=== PATIENT | female | born 1950 | race Caucasian/White ===

== ENCOUNTER 2017-10-24 06:54 | Day surgery (SDC) | payer MEDICARE, SELFPAY ==
[2017-10-20 16:17] VITALS: BMI 23.5
[2017-10-24] VITALS (7 sets, daily range): BP systolic 163–183; BP diastolic 86–93; PULSE 51–58; RESP 18–20; TEMP 36.5–36.8; O2SAT 97–100
--- NOTE | 2017-10-24 10:32 | PC.NURSE ---
IV DC'D AND 2X2S AND COBAN APPLIED TO SITE
== END 2017-10-24 09:36 | disposition hospice, home (50) ==
LOC: OR 06:56
PROVIDERS: PCP Internal Medicine Adolescent Medicine; Visit Provider Ophthalmology
DX: H26.9 Unspecified cataract (principal)
CPT/HCPCS: 66984; V2632

== ENCOUNTER → 2018-01-05 06:22 | Outpatient (CLI) | payer MEDICARE, SELFPAY ==
--- NOTE | 2018-01-05 06:24 | NM_ITS ---
History and Indications: Coronary artery disease, hypertension, family history, chest pain, shortness of breath and fatigue Procedure: Patient received a 0.4 mg of Lexiscan, resting heart rate was 66 bpm, resting blood pressure 195/101, with Lexiscan maximum heart rate achieved was 103 bpm which is less than 85% of the maximum predicted heart rate and a blood pressure is 185/107. With Lexiscan patient denied any complained of chest pain. Electrocardiogram: Resting electrocardiogram showed sinus rhythm premature ventricular complex, with Lexiscan there is less than 1.[address] depression noted from the baseline EKG. The EKG portion of the Lexiscan Myoview is nondiagnostic. Cardiac stress and resting SPECT images: Cardiac stress and rest SPECT images were obtained using technetium 99 Myoview 10.4 mCi at rest and 32.1 mCi at stress gated SPECT further analysis of segmental wall motion and calculation of the ejection fraction also done. Cardiac stress and rest images show a mild fixed defect anteroseptally with normal contractility in the gated SPECT is likely secondary to soft tissue attenuation, no reversible ischemia seen. Computer derived ejection fraction is 65% with no obvious regional wall motion abnormality, right ventricle is normal size and contractility. Conclusion: 1. The EKG portion of the Lexiscan Myoview is nondiagnostic. 2. No obvious scintigraphic evidence of reversible ischemia seen, computer derived ejection fraction 65% with no obvious regional wall motion abnormality, right ventricle is normal size and contractility.
--- NOTE | 2018-01-05 06:24 | CA_ITS ---
PROCEDURE: 2-D M-mode and color Doppler study INDICATIONS FOR THE TEST: Chest painX COPD Heart Murmur Tobacco Smoking Palpitations Fatigue Syncope Edema HypertensionXDiabetes Mellitus Rheumatic Fever SOB DOEXObesity HyperlipidemiaX Family History HD Additional History CAD PATIENT INFORMATION HEIGHT: 67 WEIGHT:159 GENDER: Female B/P:144/83 2-D/M-MODE INTERPRETATION: 2-D MEASUREMENTS OBSERVED VALUES IN CMS Right Ventricular Dimension (RVDd) 2.2 Interventricular Septum (Thickness)(IVsd) 1.2 Left Ventricular Internal Dimensions(LVIDd) 5.1 Left Ventricular Posterior Wall (Thickness)(LVPWd) .9 Aortic Root 3.3 Aortic Cusp Separation 1.6 Left Atrial Dimensions (LAD) 3.4 2D 1. Left atrium is qualitatively mildly enlarged, left ventricle is normal size, there is mild concentric left ventricular hypertrophy, visually estimated ejection fraction 55% with no obvious regional wall motion abnormality. 2. The right atrium and the ventricular normal size and contractility. 3. The aortic valve is minimally thickened and fibrosed. 4. The mitral and tricuspid valve are grossly normal. 5. The pulmonic valve is poorly visualized. 6. No significant pericardial effusion noted. DOPPLER INTERROGATION: Doppler interrogation of the aortic, mitral and tricuspid valve reveals presence of mild mitral and tricuspid regurgitation, tricuspid regurgitant jet velocity is insufficient for calculation of the right ventricular systolic pressure. Grade 1 diastolic dysfunction seen without tissue Doppler evidence of raised left atrial pressure. CONCLUSION: 1. Mildly enlarged left atrium, normal left ventricular size, mild concentric left ventricular hypertrophy, visually estimated ejection fraction 55% with no obvious regional wall motion abnormality, grade 1 diastolic dysfunction seen without tissue Doppler evidence of raised left atrial pressure. 2. Mild mitral and tricuspid regurgitation 3. No significant pericardial effusion noted.
--- NOTE | 2018-01-05 07:14 | HMH.ITSHM ---
BISOPROLOL LEVOTHYROXINE CLOPIDOGREL ADVAIR
== END ==
PROVIDERS: PCP Internal Medicine Adolescent Medicine; Visit Provider Internal Medicine
DX: Z95.5 Presence of coronary angioplasty implant and graft; I25.118 Atherosclerotic heart disease of native coronary artery with other forms of angina pectoris
CPT/HCPCS: 78452; 93017; 93306; A9502; J2785

== ENCOUNTER 2018-09-18 14:51 | Outpatient (CLI) | payer MEDICARE, SELFPAY ==
[2018-09-18 15:02] VITALS: BMI 24.1
[2018-09-18 15:15] VITALS: BP 159/88; PULSE 66; RESP 18; TEMP 36.4; O2SAT 98
[2018-09-18 15:28] LABS: Basophils % 0.4 % (0.1-2.0); Eosinophils # 0.1 K/mm3 (0.0-0.4); Eosinophils % 1.1 % (0.1-12.0); Hematocrit 43.7 % (37.0-47.0); Hemoglobin 14.5 g/dL (12.2-16.2); Lymphocytes # 0.8 K/mm3 (0.7-4.5); Lymphocytes % 13.5 % (10-50); Mean Corpuscular HGB Conc 33.3 g/dL (31.8-35.4); Mean Corpuscular Hemoglobin 29.3 pg (27.0-31.2); Mean Platelet Volume 6.9 fl (7.4-10.4); Monocytes # 0.3 K/mm3 (0.1-1.0); Monocytes % 5.4 % (1.7-9.3); Neutrophils # 4.6 K/mm3 (1.8-7.8); Neutrophils % 79.6 % (37.0-80.0); Platelet Count 258 K/mm3 (142-424); Red Blood Count 4.96 M/mm3 (4.20-5.40); Red Cell Distribution Width 13.2 % (11.5-17.5); White Blood Count 5.8 K/mm3 (4.8-10.8)
[2018-09-18 15:37] LABS: Alanine Aminotransferase 35 U/L (12-78); Albumin Level 3.8 gm/dL (3.4-5.0); Alkaline Phosphatase 107 U/L (46-116); Anion Gap 17.7 mEq/L (5-15); Aspartate Amino Transferase 39 U/L (15-37); Bilirubin,Total 0.9 mg/dL (0.2-1.0); Blood Urea Nitrogen 14 mg/dL (7-18); Calcium 9.4 mg/dL (8.5-10.1); Carbon Dioxide 23 mmol/L (21.0-32.0); Chloride 104 mmol/L (98-107); Creatinine Clearance Estimated 59 mL/min (50-200); Creatinine,Serum 0.83 mg/dL (0.55-1.02); Estimated Glomerular Filt Rate 68 ml/min (>60); GFR (African American) 82 ML/MIN (>60); Globulin 3.7 gm/dl (1.3-3.2); Glucose 105 mg/dL (74-106); Potassium 3.7 mmoL/L (3.5-5.1); Sodium 141 mmol/L (136-145); Total Protein,Serum 7.5 gm/dL (6.4-8.2)
[2018-09-18 15:45] VITALS: BP 149/82; PULSE 69; RESP 18; O2SAT 97
[2018-09-18 16:20] VITALS: BP 158/87; PULSE 70; RESP 18; O2SAT 98
[2018-09-20 12:19] LABS: Hep A Ab, IgM Negative (Negative); Hepatitis B Core Antibody IgM Negative (Negative); Hepatitis B Surface Antigen Negative (Negative)
[2018-09-21 16:12] LABS: Hepatitis C Antibody <0.1 s/co ratio (0.0-0.9)
== END 2018-09-18 16:28 | disposition home or self-care (01) ==
LOC: INF 14:53
PROVIDERS: PCP Internal Medicine Adolescent Medicine; Visit Provider Internal Medicine Adolescent Medicine
DX: K52.9 Noninfective gastroenteritis and colitis, unspecified (principal); R16.0 Hepatomegaly, not elsewhere classified
CPT/HCPCS: 80053; 80074; 85025; 96360

== ENCOUNTER → 2019-01-07 15:25 | Outpatient (CLI) | payer MEDICARE, SELFPAY ==
--- NOTE | 2019-01-07 15:39 | XR_ITS ---
XR chest 2V HISTORY: COPD, chronic bronchitis ITS.REASON: COUGH,DYSPNEA,COPD ORDERING PHYSICIAN: Cleo Fleming PATIENT AGE: 68 years COMPARISON: 12/19/2016 FINDINGS: The cardiomediastinal silhouette and pulmonary vascularity are within normal limits. Patchy densities present in the lung bases on both sides consistent with pericardial fat pads which had a similar appearance on 08/23/2014.. COPD. Degenerative change thoracic spine IMPRESSION: COPD, no acute finding
[2019-01-07 16:04] LABS: Basophils % 0.6 % (0.1-2.0); Eosinophils # 0.2 K/mm3 (0.0-0.4); Eosinophils % 2.9 % (0.1-12.0); Hematocrit 42.6 % (37.0-47.0); Hemoglobin 14.7 g/dL (12.2-16.2); Lymphocytes # 1.7 K/mm3 (0.7-4.5); Mean Corpuscular HGB Conc 34.6 g/dL (31.8-35.4); Mean Corpuscular Hemoglobin 30.6 pg (27.0-31.2); Mean Corpuscular Volume 88.6 fl (81-99); Monocytes # 0.2 K/mm3 (0.1-1.0); Monocytes % 4.2 % (1.7-9.3); Neutrophils # 3.7 K/mm3 (1.8-7.8); Neutrophils % 63.3 % (37.0-80.0); Platelet Count 313 K/mm3 (142-424); Red Cell Distribution Width 13.3 % (11.5-17.5); White Blood Count 5.8 K/mm3 (4.8-10.8)
[2019-01-07 20:26] LABS: Alanine Aminotransferase 25 U/L (12-78); Albumin Level 4.4 gm/dL (3.4-5.0); Albumin/Globulin Ratio 1.4 (1.1-1.8); Alkaline Phosphatase 87 U/L (46-116); Aspartate Amino Transferase 19 U/L (15-37); Bilirubin,Total 0.6 mg/dL (0.2-1.0); Blood Urea Nitrogen 11 mg/dL (7-18); Calcium 9.6 mg/dL (8.5-10.1); Carbon Dioxide 27 mmol/L (21.0-32.0); Chloride 104 mmol/L (98-107); Chol/HDL Ratio 3.7 (1-3.5); Cholesterol 242 mg/dL (140-200); Creatinine,Serum 0.96 mg/dL (0.55-1.02); Estimated Glomerular Filt Rate 57 ml/min (>60); GFR (African American) 70 ML/MIN (>60); Globulin 3.1 gm/dl (1.3-3.2); Glucose 83 mg/dL (74-106); HDL Cholesterol 65 mg/dL (29-89); LDL Cholesterol 152 mg/dL (0-130); Sodium 142 mmol/L (136-145); Thyroid Stimulating Hormone 0.67 uIU/ml (0.358-3.740); Total Protein,Serum 7.5 gm/dL (6.4-8.2); Triglycerides 125 mg/dL (30-200); VLDL Cholesterol 25 mg/dL (0-40)
== END ==
PROVIDERS: PCP Internal Medicine Adolescent Medicine; Visit Provider Nurse Practitioner Family
DX: E78.2 Mixed hyperlipidemia (principal); I10 Essential (primary) hypertension; E03.9 Hypothyroidism, unspecified; R05 Cough; R06.09 Other forms of dyspnea; J44.9 Chronic obstructive pulmonary disease, unspecified
CPT/HCPCS: 36415; 71046; 80053; 80061; 84443; 85025

== ENCOUNTER → 2019-07-25 09:55 | Outpatient (CLI) | payer MEDICARE, SELFPAY ==
--- NOTE | 2019-07-25 10:01 | CT_ITS ---
PROCEDURE: CT WRIST RT WO CON CLINICAL HISTORY: evaulate wrist fracture, injury with pain, preoperative evaluation Evaluate wrist fracture COMPARISON: XR WRIST RT MIN 3V from 07/23/2019 TECHNIQUE: Axial images obtained with sagittal and coronal reformats. All CT scans at the facility use one or more dose reduction, viz: automated exposure control, ma/kV adjustment per patient size (including targeted exams where dose is matched to indication, i.e. head), or iterative reconstruction technique. FINDINGS: There is a comminuted fracture involving the distal aspect of the radius. Fracture has both a transverse and longitudinal component within a diverted T shape with a longitudinal component extending into the mid and dorsal aspect of the wrist medially. There is mild impaction along a transverse component of the fracture. The fracture is not significantly displaced. The ulna has an unremarkable appearance. No carpal bone fracture evident. There are osteoarthritic changes of the 1st metacarpal-carpal joint with bony exostosis of the trapezium. IMPRESSION: Comminuted nondisplaced distal radial fracture with intra-articular involvement with mild impaction Dictated by: Dandre Villegas MD 07/26/2019 17:07 Electronically signed by Dandre Villegas MD in [facility] 07/26/2019 17:07
--- NOTE | 2019-07-25 10:02 | XR_ITS ---
PROCEDURE: XR CHEST 2V CLINICAL HISTORY: HTN,CAD,PREOP COPD COMPARISON: CXR CHEST(2 VIEWS-NOT PORTABLE) from 08/23/2014 CXR1 CHEST-PORTABLE from 12/19/2016 CXR2V XR chest 2V from 01/07/2019 FINDINGS: Mild cardiomegaly without failure. Hyperinflation with attenuation of the peripheral pulmonary vessels consistent with COPD. Chronic changes in the lung bases with pericardial fat pads. No lobar consolidation or collapse. No acute bony abnormalities. IMPRESSION: COPD, no change with no acute finding Dictated by: Dandre Villegas MD 07/25/2019 15:24 Electronically signed by Dandre Villegas MD in [facility] 07/25/2019 15:24
[2019-07-25 11:41] LABS: Basophils # 0.1 K/mm3 (0-0.2); Basophils % 0.6 % (0.1-2.0); Eosinophils # 0.1 K/mm3 (0.0-0.4); Eosinophils % 1.7 % (0.1-12.0); Hematocrit 45.2 % (37.0-47.0); Hemoglobin 14.6 g/dL (12.2-16.2); Lymphocytes # 1.3 K/mm3 (0.7-4.5); Lymphocytes % 16.6 % (10-50); Mean Corpuscular HGB Conc 32.2 g/dL (31.8-35.4); Mean Corpuscular Hemoglobin 30.2 pg (27.0-31.2); Mean Corpuscular Volume 93.7 fl (81-99); Mean Platelet Volume 7.7 fl (7.4-10.4); Monocytes # 0.3 K/mm3 (0.1-1.0); Monocytes % 4.2 % (1.7-9.3); Neutrophils # 6.2 K/mm3 (1.8-7.8); Neutrophils % 76.9 % (37.0-80.0); Platelet Count 316 K/mm3 (142-424); Red Blood Count 4.83 M/mm3 (4.20-5.40); Red Cell Distribution Width 13.4 % (11.5-17.5)
[2019-07-25 16:16] LABS: Anion Gap 14.6 mEq/L (5-15); Blood Urea Nitrogen 10 mg/dL (7-18); Calcium 9.6 mg/dL (8.5-10.1); Carbon Dioxide 27 mmol/L (21.0-32.0); Chloride 103 mmol/L (98-107); Creatinine,Serum 0.81 mg/dL (0.55-1.02); Estimated Glomerular Filt Rate 70 ml/min (>60); GFR (African American) 85 ML/MIN (>60); Glucose 94 mg/dL (74-106); Potassium 3.6 mmoL/L (3.5-5.1); Sodium 141 mmol/L (136-145)
== END ==
PROVIDERS: PCP Internal Medicine Adolescent Medicine; Visit Provider Orthopaedic Surgery
DX: Z01.818 Encounter for other preprocedural examination; S52.501A Unspecified fracture of the lower end of right radius, initial encounter for closed fracture; M25.531 Pain in right wrist
CPT/HCPCS: 36415; 71046; 73200; 80048; 85025

== ENCOUNTER → 2019-08-07 09:35 | Outpatient (CLI) | payer MEDICARE, SELFPAY ==
--- NOTE | 2019-08-07 09:40 | XR_ITS ---
PROCEDURE: XR WRIST RT MIN 3V CLINICAL INDICATION: sp ORIF rt wrist; cast applied Follow-up ORIF COMPARISON: XR WRIST RT MIN 3V from 07/23/2019 FINDINGS: Studies obtained through a cast. Status post volar bone plate placement with good alignment of the distal radial fracture. Osteoarthritic changes are present at the 1st and 2nd metacarpal-carpal joint. IMPRESSION: Good alignment distal radial fracture status post ORIF Dictated by: Dandre Villegas MD 08/07/2019 10:30 Electronically signed by Dandre Villegas MD in [facility] 08/07/2019 10:30
== END ==
PROVIDERS: PCP Internal Medicine Adolescent Medicine; Visit Provider Orthopaedic Surgery
DX: Z48.89 Encounter for other specified surgical aftercare (principal); S52.501A Unspecified fracture of the lower end of right radius, initial encounter for closed fracture
CPT/HCPCS: 73110

== ENCOUNTER → 2019-08-21 14:49 | Outpatient (CLI) | payer MEDICARE, SELFPAY ==
--- NOTE | 2019-08-21 14:52 | XR_ITS ---
PROCEDURE: XR WRIST RT MIN 3V CLINICAL INDICATION: sp ORIF RT wrist; cast removal Follow-up ORIF COMPARISON: XR WRIST RT MIN 3V from 07/23/2019 XR WRIST RT MIN 3V from 08/07/2019 FINDINGS: Status post ORIF distal radial fracture with volar bone plate and multiple screws present similar to the previous exam. There is good alignment of the fracture fragments. Osteoarthritic changes are present at the 1st metacarpal carpal joint IMPRESSION: Good alignment status post ORIF distal radial fracture Dictated by: Dandre Villegas MD 08/21/2019 15:16 Electronically signed by Dandre Villegas MD in [facility] 08/21/2019 15:16
== END ==
PROVIDERS: PCP Internal Medicine Adolescent Medicine; Visit Provider Orthopaedic Surgery
DX: Z09 Encounter for follow-up examination after completed treatment for conditions other than malignant neoplasm (principal); S52.571D Other intraarticular fracture of lower end of right radius, subsequent encounter for closed fracture with routine healing
CPT/HCPCS: 73110

== ENCOUNTER 2019-08-21 15:35 | Outpatient (RCR) | payer MEDICARE, SELFPAY | END 2019-08-21 16:00 | disposition home or self-care (01) | LOC: OT 15:35 | PROVIDERS: Visit Provider Orthopaedic Surgery | DX: S52.501A Unspecified fracture of the lower end of right radius, initial encounter for closed fracture (principal) | CPT/HCPCS: 97763 ==

== ENCOUNTER → 2019-09-11 13:19 | Outpatient (CLI) | payer MEDICARE, SELFPAY ==
--- NOTE | 2019-09-11 13:23 | XR_ITS ---
PROCEDURE: XR WRIST RT MIN 3V CLINICAL INDICATION: sp ORIF rt wrist DOS 07/30/19 Follow-up fracture COMPARISON: XR WRIST RT MIN 3V from 07/23/2019 XR WRIST RT MIN 3V from 08/07/2019 XR WRIST RT MIN 3V from 08/21/2019 FINDINGS: Volar bone plate is present stabilizing distal radial fracture with good alignment. No obvious orthopedic complications. IMPRESSION: Good alignment status post distal radial fracture Dictated by: Dandre Villegas MD 09/11/2019 16:01 Electronically signed by Dandre Villegas MD in [facility] 09/11/2019 16:01
== END ==
PROVIDERS: PCP Internal Medicine Adolescent Medicine; Visit Provider Orthopaedic Surgery
DX: Z09 Encounter for follow-up examination after completed treatment for conditions other than malignant neoplasm (principal); S52.501D Unspecified fracture of the lower end of right radius, subsequent encounter for closed fracture with routine healing
CPT/HCPCS: 73110

== ENCOUNTER → 2019-10-23 14:12 | Outpatient (CLI) | payer MEDICARE, SELFPAY ==
--- NOTE | 2019-10-23 14:16 | XR_ITS ---
PROCEDURE: XR WRIST RT MIN 3V CLINICAL INDICATION: sp ORIF rt wrist, dos 07/30/19 COMPARISON: XR WRIST RT MIN 3V from 09/11/2019 FINDINGS: Postsurgical change associated with ORIF with metallic plate and reduction screws in the distal radius is again noted. There is anatomical positioning. There is diffuse demineralization. 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 IMPRESSION: Anatomical alignment of distal radius. No acute findings. Dictated by: Emeterio Nair 10/23/2019 15:22 Electronically signed by Emeterio Nair in [facility] 10/23/2019 15:22
== END ==
PROVIDERS: PCP Internal Medicine Adolescent Medicine; Visit Provider Orthopaedic Surgery
DX: Z09 Encounter for follow-up examination after completed treatment for conditions other than malignant neoplasm (principal); S52.571D Other intraarticular fracture of lower end of right radius, subsequent encounter for closed fracture with routine healing
CPT/HCPCS: 73110

== ENCOUNTER → 2020-06-16 08:59 | Outpatient (CLI) | payer MEDICARE, SELFPAY ==
[2020-06-16 09:27] LABS: Basophils # 0.1 K/mm3 (0-0.2); Basophils % 0.9 % (0.1-2.0); Eosinophils # 0.3 K/mm3 (0.0-0.4); Eosinophils % 4.4 % (0.1-12.0); Hematocrit 44.3 % (37.0-47.0); Hemoglobin 15.3 g/dL (12.2-16.2); Lymphocytes # 1.5 K/mm3 (0.7-4.5); Lymphocytes % 25.3 % (10-50); Mean Corpuscular HGB Conc 34.6 g/dL (31.8-35.4); Mean Corpuscular Hemoglobin 31.2 pg (27.0-31.2); Mean Corpuscular Volume 90.2 fl (81-99); Mean Platelet Volume 7.4 fl (7.4-10.4); Monocytes # 0.4 K/mm3 (0.1-1.0); Monocytes % 6.1 % (1.7-9.3); Neutrophils # 3.7 K/mm3 (1.8-7.8); Neutrophils % 63.2 % (37.0-80.0); Platelet Count 300 K/mm3 (142-424); Red Blood Count 4.91 M/mm3 (4.20-5.40); Red Cell Distribution Width 13.3 % (11.5-17.5); White Blood Count 5.9 K/mm3 (4.8-10.8)
[2020-06-16 10:19] LABS: Chloride 105 mmol/L (98-107); Potassium 4.4 mmoL/L (3.5-5.1); Sodium 140 mmol/L (136-145)
[2020-06-16 10:21] LABS: Blood Urea Nitrogen 9 mg/dl (7-17); Estimated Glomerular Filt Rate 71 ml/min (>60); GFR (African American) 86 ML/MIN (>60)
[2020-06-16 10:22] LABS: Alanine Aminotransferase 21 U/L (12-78); Albumin Level 4.2 g/dl (3.5-5.0); Albumin/Globulin Ratio 1.4 (1.1-1.8); Alkaline Phosphatase 87 U/L (38-126); Anion Gap 12.4 mEq/L (5-15); Aspartate Amino Transferase 30 U/L (14-36); Calcium 9.9 mg/dl (8.4-10.2); Carbon Dioxide 27 mmol/L (22.0-30.0); Chol/HDL Ratio 3.2 (1-3.5); Cholesterol 290 mg/dl (140-200); Glucose 106 mg/dl (74-100); HDL Cholesterol 90 mg/dl (40-60); Total Protein,Serum 7.2 g/dl (6.3-8.2); Triglycerides 107 mg/dl (30-150); VLDL Cholesterol 21 mg/dL (0-40)
[2020-06-16 10:33] LABS: Direct LDL Cholesterol 157.19 mg/dL (100-129)
[2020-06-16 10:52] LABS: Thyroid Stimulating Hormone 5.77 uIU/mL (0.465-4.68)
== END ==
PROVIDERS: Visit Provider Nurse Practitioner Family
DX: I10 Essential (primary) hypertension (principal); E03.9 Hypothyroidism, unspecified; R35.0 Frequency of micturition
CPT/HCPCS: 36415; 80053; 80061; 84443; 85025

== ENCOUNTER → 2020-10-14 15:01 | Outpatient (CLI) | payer MEDICARE, SELFPAY ==
--- NOTE | 2020-10-14 15:10 | XR_ITS ---
PROCEDURE: XR CHEST PORTABLE CLINICAL HISTORY: COVID EXPOSURE Shortness of air COMPARISON: CR CXR1 CHEST-PORTABLE from 12/19/2016 CR CXR2V XR chest 2V from 01/07/2019 CR XR CHEST 2V from 07/25/2019 FINDINGS: Mild cardiomegaly without failure. There is minimal blunting of the right CP angle. Patchy density is present in the left lung base probably related to pericardial fat pad. Upper lobes are clear. No acute bony abnormalities. IMPRESSION: Chronic changes with minimal blunting of the right CP angle. Dictated by: Dandre Villegas MD 10/14/2020 15:57 Dandre Villegas MD in [facility] 10/14/2020 15:57
[2020-10-14 19:03] LABS: Basophils % 0.7 % (0.1-2.0); Eosinophils % 0.5 % (0.1-12.0); Hematocrit 44.4 % (37.0-47.0); Hemoglobin 15.2 g/dL (12.2-16.2); Lymphocytes # 1.1 K/mm3 (0.7-4.5); Lymphocytes % 20.3 % (10-50); Mean Corpuscular HGB Conc 34.1 g/dL (31.8-35.4); Mean Corpuscular Volume 87.9 fl (81-99); Monocytes # 0.4 K/mm3 (0.1-1.0); Monocytes % 6.3 % (1.7-9.3); Neutrophils % 72.3 % (37.0-80.0); Platelet Count 224 K/mm3 (142-424); Red Blood Count 5.06 M/mm3 (4.20-5.40); Red Cell Distribution Width 13.3 % (11.5-17.5); White Blood Count 5.5 K/mm3 (4.8-10.8)
[2020-10-14 19:14] LABS: Alanine Aminotransferase 15 U/L (12-78); Albumin Level 4.1 g/dl (3.5-5.0); Albumin/Globulin Ratio 1.3 (1.1-1.8); Alkaline Phosphatase 89 U/L (38-126); Anion Gap 13.2 mEq/L (5-15); Aspartate Amino Transferase 29 U/L (14-36); Bilirubin,Total 0.4 mg/dl (0.2-1.3); Blood Urea Nitrogen 12 mg/dl (7-17); Calcium 9.7 mg/dl (8.4-10.2); Carbon Dioxide 24 mmol/L (22.0-30.0); Chloride 103 mmol/L (98-107); Estimated Glomerular Filt Rate 82 ml/min (>60); GFR (African American) 100 ML/MIN (>60); Globulin 3.1 g/dL (1.3-3.2); Glucose 105 mg/dl (74-100); Potassium 3.2 mmoL/L (3.5-5.1); Sodium 137 mmol/L (136-145); Total Protein,Serum 7.2 g/dl (6.3-8.2)
[2020-10-14 19:20] LABS: Coronavirus 19 IgG Antibody Negative (Negative); Coronavirus 19 IgM Antibody Negative (Negative)
== END ==
PROVIDERS: PCP Internal Medicine Adolescent Medicine; Visit Provider Internal Medicine Adolescent Medicine
DX: Z11.52 Encounter for screening for COVID-19 (principal); R50.9 Fever, unspecified
CPT/HCPCS: 36415; 71045; 80053; 85025; 86328

== ENCOUNTER 2020-10-18 19:25 | Emergency (ER) | payer MEDICARE, SELFPAY ==
[2020-10-18 19:36] VITALS: BP 180/117; PULSE 63; RESP 16; TEMP 36.7; O2SAT 96; BMI 26.6
--- NOTE | 2020-10-18 19:41 | XR_ITS ---
PROCEDURE: XR CHEST 2V Referring Doctor: Rony Tenorio Patient Age:69Y CLINICAL HISTORY: weakness,covid contact and positive Abdominal pain. Fatigue nausea vomiting general malaise COMPARISON: CR CXR2V XR chest 2V from 01/07/2019 CR XR CHEST 2V from 07/25/2019 CR XR CHEST PORTABLE from 10/14/2020 FINDINGS: PA and lateral chest performed. Lungs mildly hyperexpanded suggesting underlying COPD.. 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 Suspect the subtle areas likely the within density more likely within the lungs rather than related to rib density. Also at the right lung there is some wispy density just above the right hemidiaphragm. Some of this reflects chronic scarring and some atelectasis is seen on 2019 but difficult to exclude minimal wispy infiltrate here at the right lung base Left chest.. The density at the left lung base just above the diaphragm most likely reflects chronic changes and anterior fat pad. Similar appearance healing to this relates to. Question areas of upper normal density at the left anterior 3rd rib and and towards the anterior 5th rib laterally The heart is normal upper normal in size. Antoinette and mediastinal structures satisfactory. Pulmonary markings in vascularity a slightly more evident but I believe this is merely due to technique without significant vascular engorgement or congestion. No pleural effusion;. No pneumothorax. Stable degenerative changes T-spine manifest by anterior marginal osteophytes IMPRESSION: Mild chronic changes bilaterally most evident towards bases . Hyperexpansion suggests COPD . On close inspection suggestion very subtle foci of increased density project over the posterior 5th, 6, 7 ribs as well as anterior 5th rib. Initially question these were related to healing ribs, but on further review more suspect of possible subtle small pulmonary opacities.. Thus if covid positive, could not exclude series of very subtle patchy infiltrates/possible curious sequential infiltrates. This most suspect on right and less likely left lung Otherwise the minimal wispy density lung bases more likely to scarring and and atelectasis. Doubt but difficult to totally exclude exclude early infiltrate here-if symptoms progress follow-up imaging suggested Dictated by: Lonnie Castle MD 10/18/2020 22:27 Lonnie Castle MD in [facility] 10/18/2020 22:27
[2020-10-18 19:57] VITALS: BP 146/99; PULSE 61; RESP 16; O2SAT 94
--- NOTE | 2020-10-18 20:00 | HMH.EDWEAK ---
ED Disposition Clinical Impression: COVID-19 virus IgG antibody detected, COVID-19 virus IgM antibody detected, Hypokalemia, COVID-19 UTI (urinary tract infection) Qualifiers: Urinary tract infection type: site unspecified Hematuria presence: without hematuria Qualified Code(s): N39.0 - Urinary tract infection, site not specified Disposition: Home, Self-Care Condition on Discharge: Good Instructions: DI for COVID-19 (Suspected or Confirmed ) Additional Instructions: call pcp in am and check on urine culture Referrals: Ramon Flanagan MD [Primary Care Provider] - - Critical Care Critical Care Time: No Attestation: On 10/18/20, the high probability of a clinically significant, sudden or life threatening deterioration of the following system(s) required my full and direct attention, intervention and personal management. The time I documented below is in addition to time spent performing reported procedures but includes the following listed in this critical care notation. Medical Decision Making - Medical Records Medical records reviewed: Yes: I reviewed the patient's medical records. - Roger Inquiry Pt receiving controlled substance: No Vital Signs: 10/18/20 19:36 10/18/20 19:57 10/18/20 20:27 Temperature 98.1 F Temperature Source Oral Pulse Rate [Right Brachial] 63 61 59 L Respiratory Rate 16 16 17 Blood Pressure [Right Arm] 180/117 H 146/99 H 176/83 H Blood Pressure Mean [Right Arm] 138 114 114 Blood Pressure Source [Right Arm] Automatic Cuff Automatic Cuff Blood Pressure Position [Right Arm] Sitting Sitting Sitting 02 Sat by Pulse Oximetry 96 94 L 93 L Oxygen Delivery Method Room Air Room Air Room Air 10/18/20 20:57 Temperature Temperature Source Pulse Rate [Right Brachial] 58 L Respiratory Rate 16 Blood Pressure [Right Arm] 184/93 H Blood Pressure Mean [Right Arm] 123 Blood Pressure Source [Right Arm] Automatic Cuff Blood Pressure Position [Right Arm] Sitting 02 Sat by Pulse Oximetry 97 Oxygen Delivery Method Room Air - Lab Data Lab results reviewed: Yes: I reviewed the patient's lab results. Lab Results 10/18/20 19:51: WBC 7.6, RBC 5.44 H, Hgb 16.3 H, Hct 47.6 H, MCV 87.5, MCH 30.0, MCHC 34.2, RDW 13.0, Plt Count 353, MPV 8.1, Neut % (Auto) 63.2, Lymph % (Auto) 26.3, [place] % (Auto) 8.6, Eos % (Auto) 1.0, Baso % (Auto) 0.8, Neut # (Auto) 4.8, Lymph # (Auto) 2.0, [place] # (Auto) 0.7, Eos # (Auto) 0.1, Baso # (Auto) 0.1, ESR 24 10/18/20 19:51: Sodium 138, Potassium 3.1 L, Chloride 97 L, Carbon Dioxide 32 H, Anion Gap 12.1, BUN 10, Creatinine 0.70, Estimated Creat Clear 63, Estimated GFR 82, Est GFR ( Amer) 100, Glucose 136 H, Calcium 10.0, Total Bilirubin 0.7, Direct Bilirubin 0.3, Conjugated Bilirubin 0.0, Indirect Bilirubin 0.4, Unconjugated Bilirubin 0.4, AST 35, ALT 30, Alkaline Phosphatase 100, C-Reactive Protein 16.4 H, Total Protein 7.9, Albumin 4.3, TSH 0.03 L, Thyroxine (T4) 17.8 H 10/18/20 19:51: SARS-CoV-2 IgG Ab (Rapid) Positive A, SARS-CoV-2 IgM Ab (Rapid) Positive A 10/18/20 19:51: Troponin I < 0.01 10/18/20 21:10: Urine Color Yellow, Urine Appearance Clear, Urine pH 7.0, Ur Specific [place] 1.010, Urine Protein Negative, Urine Glucose (UA) Negative, Urine Ketones Negative, Urine Blood Negative, Urine Nitrate Negative, Urine Bilirubin Negative, Urine Urobilinogen 0.2, Ur Leukocyte Esterase 1+ A, Urine WBC 10-20 Result diagrams: 10/18/20 19:51 10/18/20 19:51 Orders (Tests/Meds): ED MEDICATIONS Generic Name Dose Route Start Last Admin Trade Name Freq PRN Reason Stop Dose Admin Sodium Chloride 1,000 mls @ 999 mls/hr 10/18/20 19:45 10/18/20 20:20 Sod Chlor 0.9% 1000ml Bag IV 10/18/20 20:45 999 mls/hr .Q1H1M TAMMY Administration Sodium Chloride 1,000 mls @ 999 mls/hr 10/18/20 21:15 01/17/21 21:06 Sod Chlor 0.9% 1000ml Bag IV 10/18/20 22:15 999 mls/hr .Q1H1M TAMMY Administration Sodium Chloride 8 ml 10/18/20 20:08 Sodium Chloride 0.9% 10ml Vial
[2020-10-18 20:10] LABS: Basophils # 0.1 K/mm3 (0-0.2); Basophils % 0.8 % (0.1-2.0); Eosinophils # 0.1 K/mm3 (0.0-0.4); Hematocrit 47.6 % (37.0-47.0); Hemoglobin 16.3 g/dL (12.2-16.2); Lymphocytes % 26.3 % (10-50); Mean Corpuscular HGB Conc 34.2 g/dL (31.8-35.4); Mean Corpuscular Volume 87.5 fl (81-99); Mean Platelet Volume 8.1 fl (7.4-10.4); Monocytes # 0.7 K/mm3 (0.1-1.0); Monocytes % 8.6 % (1.7-9.3); Neutrophils # 4.8 K/mm3 (1.8-7.8); Neutrophils % 63.2 % (37.0-80.0); Platelet Count 353 K/mm3 (142-424); Red Blood Count 5.44 M/mm3 (4.20-5.40); White Blood Count 7.6 K/mm3 (4.8-10.8)
[2020-10-18 20:11] LABS: Alanine Aminotransferase 30 U/L (12-78); Albumin Level 4.3 g/dl (3.5-5.0); Alkaline Phosphatase 100 U/L (38-126); Anion Gap 12.1 mEq/L (5-15); Aspartate Amino Transferase 35 U/L (14-36); Bilirubin,Direct 0.3 mg/dl (0.0-0.4); Bilirubin,Indirect 0.4 mg/dL (0.0-0.9); Bilirubin,Total 0.7 mg/dl (0.2-1.3); Bilirubin,Unconjugated 0.4 mg/dL (0.0-1.1); Blood Urea Nitrogen 10 mg/dl (7-17); Carbon Dioxide 32 mmol/L (22.0-30.0); Chloride 97 mmol/L (98-107); Creatinine Clearance Estimated 63 mL/min (50-200); Estimated Glomerular Filt Rate 82 ml/min (>60); GFR (African American) 100 ML/MIN (>60); Glucose 136 mg/dl (74-100); Potassium 3.1 mmoL/L (3.5-5.1); Sodium 138 mmol/L (136-145); Total Protein,Serum 7.9 g/dl (6.3-8.2)
[2020-10-18 20:17] LABS: C-Reactive Protein 16.4 mg/L (0-4)
--- NOTE | 2020-10-18 20:17 | ECG_ITS ---
APPROVED REPORT Exam: Resting ECG HR:60 bpm ECG Measurements Heart Rate 60 AXES AK 204 P 64 QRSd 88 QRS -6 QT 494 T 35 QTc 494 Conclusion Normal sinus rhythm Minimal voltage criteria for LVH, may be normal variant Nonspecific ST and T wave abnormality Prolonged QT Abnormal ECG Electronically signed by : Ramon Flanagan, 10/19/2020 19:37:18
[2020-10-18 20:27] VITALS: BP 176/83; PULSE 59; RESP 17; O2SAT 93
[2020-10-18 20:31] LABS: T4 (Thyroxine) 17.8 ug/dl (5.53-11.0)
[2020-10-18 20:35] LABS: Coronavirus 19 IgG Antibody Positive (Negative); Coronavirus 19 IgM Antibody Positive (Negative)
[2020-10-18 20:44] LABS: Thyroid Stimulating Hormone 0.03 uIU/mL (0.465-4.68)
[2020-10-18 20:57] VITALS: BP 184/93; PULSE 58; RESP 16; O2SAT 97
[2020-10-18 20:58] LABS: Troponin I < 0.01 ng/ml (0.00-0.034)
[2020-10-18 21:02] LABS: Erythrocyte Sedimentation Rate 24 mm/hr (0-30)
[2020-10-18 21:42] LABS: Microscopic, Urine URINE MICROSCOPIC (MICROSCOPIC)
[2020-10-18 21:43] LABS: Appearance,Urine CLEAR (Clear); Bilirubin,Urine Negative (Negative); Blood, Urine Negative (Negative); Color,Urine YELLOW (Yellow); Glucose,Urine (UA) Negative (Negative); Ketones,Urine Negative (Negative); Leukocyte Esterase,Urine 1+ (Negative); Nitrate,Urine Negative (Negative); Protein,Urine Negative (Negative); Urobilinogen,Urine 0.2 EU/dl (0.2)
--- NOTE | 2020-10-18 21:57 | PC.NURSE ---
called lab to ask about COVID swab results. lab stated the test had another 63mins
--- NOTE | 2020-10-18 23:06 | PC.NURSE ---
received covid positive result
[2020-10-18 23:22] VITALS: BP 173/75; PULSE 87; RESP 15; TEMP 36.6; O2SAT 98
== END 2020-10-18 23:26 | disposition home or self-care (01) ==
PROVIDERS: Emergency Medicine; Emergency Provider Emergency Medicine; PCP Internal Medicine Adolescent Medicine
DX: U07.1 COVID-19 (principal); Z01.84 Encounter for antibody response examination; N30.00 Acute cystitis without hematuria; I10 Essential (primary) hypertension; I25.10 Atherosclerotic heart disease of native coronary artery without angina pectoris; E78.5 Hyperlipidemia, unspecified; J44.9 Chronic obstructive pulmonary disease, unspecified; Z79.899 Other long term (current) drug therapy
CPT/HCPCS: 71046; 80048; 80076; 81001; 84436; 84443; 84484; 85025; 85651; 86140; 86328; 87086; 93005; 96365; 96367; 96375; 99284; J2405; U0003

== ENCOUNTER → 2020-12-29 07:22 | Outpatient (CLI) | payer MEDICARE, SELFPAY ==
--- NOTE | 2020-12-29 | CA_ITS ---
APPROVED REPORT Exam: Pharmacologic Technologist: Anne Orta Ht: 5 ft 6 in Wt: 163 lbs BSA: 1.83 m2 HR: 59 bpm BP: 174/87 mmHg Indications: CAD Medical History Medications: Losartan,,,,, BisOPROLOL,,,,, Levothyoxine,,,,, Stress Test Details Test: LEXISCAN HR Resting HR: 61 bpm Max Heart Rate (APMHR): 148.598382 bpm Max HR Achieved: 82 bpm Target HR (85% APMHR): 125.284453 bpm % of APMHR: 55.41 Recovery HR: 70 bpm BP Resting BP: 174.0/87.0 mmHg Max BP: 174.0/87.0 mmHg Recovery BP: 155.0/81.0 mmHg ECG Resting ECG: Normal sinus rhythm, first degree AV block Clinical Exercise duration: 04:00 min Highest Stage Achieved: Stress ECG Conclusion Symptoms: Shortness of air, malaise. No chest pain Arrhythmias/Ectopy: None ST-T Changes: No significant changes. Conclusion: Unremarkable Lexiscan stress. Myoview images reported separately. Electronically signed by : Baltazar Main, 12/29/2020 17:20:19
--- NOTE | 2020-12-29 07:26 | NM_ITS ---
APPROVED REPORT Exam: Nuclear Stress Test Indication: Chest pain, SOB, Fatigue, HTN, CAD, Family history Patient Location: Outpatient Stress Tech: Anne Orta NM Tech:Zenia Diaz, ARRT, RT (R)(N) Ht: 5 ft 6 in Wt: 163 lbs Bra Size: 38D HR: 59 bpm BP: 174/87 mmHg BSA: 1.83 m2 BMI: 26.3 History: Chest pain, SOB, Fatigue, HTN, CAD, Family history Procedure: Patient received a 0.4 mg of intravenous Lexiscan, resting heart rate 59 bpm, resting blood pressure 174/87 mmHg, with Lexiscan maximum heart rate achived was 82 bpm which is Less than 85 % of the maximum predicted heart rate and blood pressure was 159/86 mmHg. With Lexiscan, patient denied any complaint of chest pain. Electrocardiogram Resting electrocardiogram showed sinus rhythm, with Lexiscan less than 1.[address] segment depression noted from the baseline EKG. The EKG portion of the Lexiscan is nondiagnostic. Cardiac Stress and Resting SPECT Images: Cardiac Stress and Resting SPECT images were obtained using technetium 99m Myoview 32.1 mCi stress and 9.85 mCi at rest. Gated SPECT for analysis of segmental wall motion and calculation of the ejection fraction also done, prone images were also obtained. Cardiac stress and resting SPECT images show uniform myocardial activity without segmental perfusion abnormality, computer derived ejection fraction is over 65% with no regional wall motion abnormality, right ventricle is normal size and contractility. Conclusion: 1. The EKG portion of the Lexiscan is nondiagnostic. 2. No scintigraphic evidence of reversible ischemia seen, computer derived ejection fraction is over 65% with no regional wall motion abnormality, right ventricle is normal size and contractility. 3. Normal Lexiscan Myoview study. Electronically signed by : Baltazar Main, 12/29/2020 17:26:55
--- NOTE | 2020-12-29 08:35 | HMH.ITSHM ---
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 []LOSARTAN BISOPROLOL AMLODIPINE LEVOTHYROXINE TRELEGY
== END ==
PROVIDERS: PCP Internal Medicine Adolescent Medicine; Visit Provider Nurse Practitioner Family
DX: I25.119 Atherosclerotic heart disease of native coronary artery with unspecified angina pectoris (principal)
CPT/HCPCS: 78452; 93017; A9502; J2785

== ENCOUNTER → 2022-11-21 06:17 | Outpatient (CLI) | payer MEDICARE, SELFPAY ==
--- NOTE | 2022-11-21 | CA_ITS ---
APPROVED REPORT Exam: Pharmacologic Technologist: Dayna Tovar, Ht: 5 ft 7 in Wt: 160 lbs BSA: 1.84 m2 HR: 51 bpm BP: 188/89 mmHg Medical History Medications: Levothyroxine,,,,, Vitamin B12,,,,, Losartan,,,,, BisOPROLOL,,,,, Stress Test Details Test: LEXISCAN Reason for pharmacologic stress test: physical limitation. HR Resting HR: 53 bpm Max Heart Rate (APMHR): 146.623599 bpm Max HR Achieved: 75 bpm Target HR (85% APMHR): 124.862393 bpm % of APMHR: 51.37 Recovery HR: 58 bpm BP Resting BP: 188/89 mmHg Max BP: 188/89 mmHg Recovery BP: 178.0/85.0 mmHg ECG Resting ECG: Sinus rhythm, 1*AVB Clinical Reason for Termination: Completed Protocol Exercise duration: 04:01 min Highest Stage Achieved: Exercise capacity: 1.0 METs Stress ECG Conclusion Symtoms: No CP Arrhythmias/Ectopy: PVC's - Transient, Frequent in Stage IV ST-T Changes: <1.5mm ST Segment changes Conclusion: Non-Diagnostic Test Summary REST . . . . . . . Resting REST 08:59 . . 53 . 188/ 89 . . Stage 1 01:00 . . 68 . . . . Stage 2 01:00 . . 73 . . . . Stage 3 01:00 . . 69 . 185/ 83 . . Stage 4 01:00 . . 65 . 168/ 83 . . Stage 4 01:01 . . 65 . 168/ 83 . Stop exercise at 04:01 RECOVERY 01:00 . . 62 . . . . RECOVERY 02:00 . . 58 . . . . RECOVERY 02:39 . . 62 . 178/ 85 . . Electronically signed by : Baltazar Main MD 11/21/2022 13:15:07
--- NOTE | 2022-11-21 | CA_ITS ---
APPROVED REPORT EXAM: Comprehensive 2D, Doppler, and color-flow Echocardiogram Control Specialist: DEDRA Mcallister, RVS Ht: 5 ft 6 in Wt: 159lbs BSA: 1.81 BP: 184/93 mmHg Indications: Dyspnes, CAD, HTN, HLD 2D Dimensions IVSd 0.90 cm F: 0.6-1.0 LVEF (Visual) 73.40 % PWd 0.96 cm F: 0.6 - 1.0 LA Volume 61.50 mL LVDd 5.44 cm F: 3.9 - 5.3 LA Volume Index 33.79 mL/m2 (M/F) 16-34 LVDs 3.11 cm F: 2.2 - 3.5 Aortic Root 2.79 cm F: 2.7 - 3.3 Left Atrium 3.45 cm F: 2.7 - 3.8 LVOT 2.04 cm (M/F) 1.5-2.5 M-Mode Dimensions LA Diam 3.71 cm (1.9-4.0) Ao Diam 2.89 cm (2.0-3.7) EPSs 0.32 cm TAPSE 1.87 (<1.7) LV Diastology E Decel Time 233.00 (160-240 msec) E/A Ratio 0.77 MED E' 5.40 (< 7 cm/sec) MED A' 8.60 cm/s E'/MED E' Ratio 10.39 (>14) LAT E' 7.20 (<10 cm/sec) LAT A' 8.70 cm/s E/LAT E' Ratio 7.79 (>14) Aortic Valve LVOT Max 105.00 (70-110 cm/s) LVOT VTI 23.98 cm AO Peak GR. 5.00 mmHg Mitral Valve MV A Velocity 73.00 (40-130 cm/s) E/A Ratio 0.77 MV Decel. Time 233.00 (160-240 ms) Pulmonary Valve PV Peak Velocity 66.00 (50-150 cm/s) OK End VMAX 192.00 cm/s Tricuspid Valve TR P. Velocity 201.00 cm/s RAP Estimate 10.00 mmHg RVSP 26.10 mmHg Left Ventricle Left atrium is mildly enlarged, left ventricle is normal size mild concentric left ventricular hypertrophy, estimated ejection fraction 55% with no regional wall motion abnormality, grade 1 diastolic dysfunction seen without tissue Doppler evidence of raise left atrial pressure. Right Ventricle Right atrium and right ventricular normal size and contractility. Aortic Valve Aortic valve is minimally thickened and fibrosed, there is no aortic stenosis aortic insufficiency. Mitral Valve Mitral valve is grossly normal, there is mild mitral regurgitation. Tricuspid Valve Tricuspid valve grossly normal, there is mild tricuspid regurgitation, tricuspid regurgitation jet plus is inadequate for calculation of the right ventricular systolic pressure. Pulmonic Valve Pulmonic valve is poorly visualized. Great Vessels Aortic root is normal size. Inferior vena cava is poorly visualized. Pericardium No significant pericardial effusion noted. Conclusion 1. Mildly enlarged left atrium, normal left ventricular size, mild concentric left ventricular hypertrophy, estimated ejection fraction 55% with no regional wall motion abnormality, grade 1 diastolic dysfunction seen without tissue Doppler evidence of raise left atrial pressure. 2. Mild mitral and tricuspid regurgitation. 3. No significant pericardial effusion noted. 4. Inferior vena cava is poorly visualized. Electronically signed by : Baltazar Main MD 11/21/2022 18:05:54
--- NOTE | 2022-11-21 06:32 | NM_ITS ---
APPROVED REPORT Exam: Nuclear Stress Test Indication: Chest pain, SOB, HTN, CAD, High cholesterol, Family history Patient Location: Outpatient Stress Tech: Dayna Hyman NC Tech:Zenia Diaz, ARRT, RT (R)(N) Ht: 5 ft 7 in Wt: 160 lbs Bra Size: 38B HR: 53 bpm BP: 188/89 mmHg BSA: 1.84 m2 TID: 1.14 BMI: 25.0 History: Chest pain, SOB, HTN, CAD, High cholesterol, Family history Procedure: Patient received 0.4 mg of intravenous Lexiscan, resting heart rate 53 bpm, resting blood pressure 188/89 mmHg, with Lexiscan maximum heart rate achieved was 75 bpm which is Less than 85 % of the maximum predicted heart rate and blood pressure was 188/89 mmHg. With Lexiscan, patient denied any complaint of chest pain. Electrocardiogram Resting electrocardiogram shows sinus rhythm, with Lexiscan there is less than 1.[address] segment depression noted from the baseline EKG. The EKG portion of the Lexiscan is nondiagnostic. Cardiac Stress and Resting SPECT Images: Cardiac Stress and Resting SPECT images were obtained using technetium 99m Myoview 30.2 mCi stress and 10.06 mCi at rest. Gated SPECT for analysis of segmental wall motion and calculation of the ejection fraction also done. Prone images were also obtained. Cardiac prone images show uniform myocardial activity without segmental perfusion abnormality, computer derived ejection fraction is 63% with no regional wall motion abnormality, right ventricle is normal size and contractility. Conclusion: 1. The EKG portion of the Lexiscan is nondiagnostic. 2. No scintigraphic evidence of reversible ischemia seen, computer derived ejection fraction 63% with no regional wall motion abnormality, right ventricle is normal size and contractility. 3. Normal Lexiscan Myoview study. Electronically signed by : Baltazar Main MD 11/21/2022 14:15:56
--- NOTE | 2022-11-21 08:41 | HMH.ITSHM ---
Current Home Medications as stated by this patient Tere Phillip or community engagement representative. []LOSARTAN LEVOTHYROXINE BISOPROLOL
== END ==
LOC: RAD 06:17
PROVIDERS: PCP Internal Medicine Adolescent Medicine; Visit Provider Nurse Practitioner Family
DX: R06.09 Other forms of dyspnea (principal)
CPT/HCPCS: 78452; 93017; 93306; A9502; J2785

== ENCOUNTER 2025-01-16 10:33 | Emergency (ER) | payer MEDICARE, SELFPAY ==
[2025-01-16 10:54] LABS: POC Glucose,Bedside 113 (70-110)
[2025-01-16 10:57] VITALS: BP 176/99; PULSE 86; RESP 16; TEMP 36.7; O2SAT 96; BMI 26.2
--- NOTE | 2025-01-16 10:57 | CT_ITS ---
FINAL REPORT TECHNIQUE: The patient was injected with IV contrast. Axial images were obtained through the chest in a PE protocol. 3-D reconstruction images were also performed. Individualized dose reduction techniques using automated exposure control or adjustment of the MA and/or KV according to patient's size were employed. CLINICAL HISTORY: L sided deficits, bradycardia FINDINGS: Mediastinal vasculature is adequately opacified. No pulmonary artery filling defects are identified to suggest PE. There is no aortic dissection. There is no axillary adenopathy. There is no hilar or mediastinal adenopathy. Coronary calcifications are noted. The heart size is normal. There is no pericardial or pleural effusion. There is moderate scarring at the lung bases. There is no suspicious pulmonary abnormality. Limited images of the upper abdomen demonstrate a small sliding-type hiatal hernia. The gallbladder is surgically absent. IMPRESSION: No pulmonary embolus or dissection. Reviewed, Interpreted and Dictated by Rahul Luciano MD Transcribed by Silvia Gotti Authenticated and . [facility]
--- NOTE | 2025-01-16 10:57 | CT_ITS ---
FINAL REPORT TECHNIQUE: NASCET technique utilized for stenosis evaluation. CLINICAL HISTORY: L sided deficits and dysarthria, stroke protocol COMPARISON: None FINDINGS: The origins of the great vessels are unremarkable. RIGHT CAROTID: No significant stenosis is seen of the cervical common or internal carotid artery. LEFT CAROTID: No significant stenosis seen of the cervical common or internal carotid artery. VERTEBRALS: The vertebral arteries are patent. The left vertebral artery is dominant. No significant stenosis is present. IMPRESSION: No significant arterial abnormality. Reviewed, Interpreted and Dictated by Rahul Luciano MD Transcribed by Valery Chandler Authenticated and [facility]
--- NOTE | 2025-01-16 10:57 | CT_ITS ---
FINAL REPORT TECHNIQUE: Thin section axial CT with and without IV contrast supplemented with multiplanar 3-D reconstruction of the head. This study was performed with techniques to keep radiation doses as low as reasonably achievable, (ALARA)individualized dose reduction techniques using automated exposure control or adjustment of mA and/or kV according to the patient's size were employed. CLINICAL HISTORY: L sided deficits and dysarthria, stroke protocol COMPARISON: None FINDINGS: HEAD CT: The ventricles are normal in size. There is no evidence of hemorrhage. No masses are identified. No extra-axial fluid is seen. The sinuses are normal. CTA: The cranial circulation is unremarkable. There is no significant stenosis, aneurysm or occlusion. IMPRESSION: Unremarkable MR angiography of the intracranial vessels. Diffusion weighted MRI may be of value. Reviewed, Interpreted and Dictated by Rahul Luciano MD Transcribed by Valery Chandler Authenticated and [facility]
--- NOTE | 2025-01-16 10:58 | XR_ITS ---
FINAL REPORT CLINICAL HISTORY: Stroke syndrome, left-sided droop COMPARISON: None FINDINGS: One view of the chest was obtained. The heart size is normal. The thoracic aorta is unfolded. There are mild chronic changes in both lungs. There are no pleural effusions. There is no pneumothorax. There is no osseous abnormality. IMPRESSION: No acute cardiopulmonary process Reviewed, Interpreted and Dictated by Rahul Luciano MD Transcribed by Elizabeth Culver Authenticated and [facility]
--- NOTE | 2025-01-16 10:58 | CT_ITS ---
FINAL REPORT TECHNIQUE: multiple axial CT images were performed from the foramen magnum to the vertex without enhancement. CLINICAL HISTORY: L sided deficits and dysarthria, r/o stroke FINDINGS: The ventricles are normal in size. There is mild atrophy. There is periventricular white matter change likely related to small vessel disease. There is no evidence of hemorrhage. There are few scattered old lacunar infarcts in the basal ganglia. No masses are identified. No extra-axial fluid is seen. The sinuses are normal. IMPRESSION: No acute intracranial abnormality. Atrophy and chronic changes without acute process. Reviewed, Interpreted and Dictated by Rahul Luciano MD Transcribed by Silvia Gotti Authenticated and . [facility]
[2025-01-16 11:00] VITALS: BP 135/93; PULSE 58; RESP 15; O2SAT 96
[2025-01-16 11:10] LABS: Basophils # 0.1 K/mm3 (0-0.2); Basophils % 0.9 % (0.1-2.0); Eosinophils # 0.2 K/mm3 (0.0-0.4); Eosinophils % 2.6 % (0.1-12.0); Hematocrit 48.7 % (37.0-47.0); Hemoglobin 16.4 g/dL (12.2-16.2); Lymphocytes # 1.3 K/mm3 (0.7-4.5); Mean Corpuscular HGB Conc 33.7 g/dL (31.8-35.4); Mean Platelet Volume 9.6 fl (7.4-10.4); Monocytes # 0.7 K/mm3 (0.1-1.0); Monocytes % 7.3 % (1.7-9.3); Neutrophils # 6.6 K/mm3 (1.8-7.8); Neutrophils % 73.9 % (37.0-80.0); Nucleated Red Blood Cells # 0 10^3/uL; Nucleated Red Blood Cells % 0 %; Platelet Count 336 K/mm3 (142-424); Red Blood Count 5.47 M/mm3 (4.20-5.40); Red Cell Distribution Width 12.8 % (11.5-17.5); Red Cell Distribution Width-SD 42.5 fL
--- NOTE | 2025-01-16 11:10 | ECG_ITS ---
APPROVED REPORT Exam: Resting ECG HR:65 bpm ECG Measurements Heart Rate 65 AXES SD 120 P -45 QRSd 93 QRS -22 QT 424 T 23 QTc 435 Conclusion Sinus rhythm No acute ischemic change Electronically signed by : GENARO CORTES, 01/16/2025 15:27:46
[2025-01-16 11:17] LABS: Alanine Aminotransferase 28 U/L (12-78); Albumin Level 4.9 g/dl (3.5-5.0); Albumin/Globulin Ratio 1.2 (1.1-1.8); Alkaline Phosphatase 93 U/L (38-126); Anion Gap 16.7 mEq/L (5-15); Aspartate Amino Transferase 34 U/L (14-36); Bilirubin,Total 1.3 mg/dl (0.2-1.3); Blood Urea Nitrogen 14 mg/dl (7-17); Carbon Dioxide 28 mmol/L (22.0-30.0); Chloride 99 mmol/L (98-107); Estimated Glomerular Filt Rate 54 ml/min (>60); GFR (African American) 65 ML/MIN (>60); Glucose 127 mg/dl (74-100); Potassium 3.7 mmoL/L (3.5-5.1); Sodium 140 mmol/L (136-145); Total Protein,Serum 8.9 g/dl (6.3-8.2)
[2025-01-16 11:18] LABS: INR 0.91 (0.9-1.1); Prothrombin Time 10.3 seconds (10.1-12.5)
[2025-01-16] MEDS: 0.9 % SODIUM CHLORIDE 50 ML VIAL IV ×2 (11:18)
[2025-01-16] MEDS: IOPAMIDOL-370 (76%);100ML BOTTLE 80 ML IV ×2 (11:18)
[2025-01-16] MEDS: SODIUM CHLORIDE 0.9% 10ML SYR (RAD ONLY) 10 ML IV ×2 (11:18)
[2025-01-16 11:22] LABS: Activated Partial Thrombo Time 24.8 seconds (22.8-30.6)
[2025-01-16 11:34] LABS: T4 (Thyroxine) 15.5 ug/dl (5.53-11.0)
[2025-01-16 11:44] LABS: Troponin I < 0.01 ng/ml (0.00-0.034)
[2025-01-16 11:46] LABS: Magnesium 1.8 mg/dl (1.6-2.3)
[2025-01-16 11:48] LABS: Thyroid Stimulating Hormone 0.49 uIU/mL (0.465-4.68)
--- NOTE | 2025-01-16 11:48 | HMH.EDGENADL ---
Discharge Plan Disposition Patient Disposition: Home, Self-Care Chief Complaint: Neuro Symptoms/Deficit Prescriptions Prescriptions: No Action bisoprolol-hydrochlorothiazide 10-6.25 mg tablet 1 tab PO DAILY losartan 100 MG tablet 100 mg PO DAILY levothyroxine 125 MCG tablet 200 mcg PO DAILY Referrals Follow up/Referrals: Cleo Fleming APRN [Primary Care Provider] - See instructions Activity Restrictions/Add. Instructions Additional Instructions/Restrictions: Call your family doctor to establish care for this visit to the emergency department and schedule follow-up within 48 hours to ensure improvement. If you have any worsening of your condition or any other concerning signs or symptoms, return to the emergency department or your primary care doctor for further evaluation. Talk to family doctor about outpatient MRI to further characterize left-sided facial symptoms. Clinical Impressions Clinical Impression: Difficulty swallowing, Facial droop Print Language Print Language: Nepalese Discharge ED Provider: Tommy Grant General Adult HPI General Chief complaint: Neuro Symptoms/Deficit Stated complaint: poss stroke Time Seen by Provider: 01/16/25 10:57 Mode of Arrival: Family Vehicle Source of Information: Patient and Medical Record Description of Symptoms (Recalled from ER Triage Doc. by RN): Pt sent by PCP for L side facial droop and severe headache since Monday. Pt states it is the worst headahe of my life . She reports generalized weakness t/o here body. There is a left facial droop present with rest, smile. NIHSS 1. Denies any SOA, cough, chest pain, n/v/d, or fever/chills. States she does have spots in her vision, that is a little worse that typical as she does report cataracts. FS 113. History of Present Illness HPI narrative: Please note that above description of symptoms, in this electronic medical record under categorization of recalled from ER triage doctor by RN are reflective of an initial nursing assessment, however, is not reflective of my full history and physical exam that was personally taken and clarified. Consequentially, this preceding description of symptoms, which may include the patient's categorized chief complaint in the EMR, do not reflect my personal clinical impression, and the ultimate description of history of present illness and patient stated complaints should be deferred to this section of the note. Unless stated otherwise or congruent with this section of the note, additional signs, symptoms, or incongruence should be interpreted as inaccurate with my clinical impression. Related Data Home Medications ?Medication ?Instructions ?Recorded ?Confirmed levothyroxine 125 mcg tablet 200 mcg PO DAILY thyroid 10/20/17 10/18/20 bisoprolol 10 1 tab PO DAILY bp 07/24/19 10/18/20 mg-hydrochlorothiazide 6.25 mg tablet losartan 100 mg tablet 100 mg PO DAILY bp 07/29/19 10/18/20 Allergies Allergy/AdvReac Type Severity Reaction Status Date / Time Sulfa (Sulfonamide Allergy Mild Verified 10/23/19 15:27 Antibiotics) (SULFA (SULFONAMIDE ANTIBIOTICS)) [facility] Disclaimer: The information contained in this section may have been updated after the patient was seen, as this information can be updated by other users. Medical History (Updated 01/16/25 @ 13:23 by Tommy Grant MD) Preoperative clearance Social History Smoking Status: Never smoker second hand exposure: No alcohol intake: never substance use type: denies use current occupational status: employed and retired Travel in the last 8 weeks: None household members: family housing: house current occupation: [email or web address] current occupational exposures/hazards: No caffeine: No Have you lived/traveled outside [place] in past 30 days?: No Contact w/someone who lives/traveled outside US past 30 days?: No Exposure to someone with infectious disease in past 14 days?: No Do you have a fever (greater than 100.4 F or 38 C)?: No Have you tested positive for COVID-19: No Exposed to someone with COVID-19 in past 14 days?: No Do you have a sore throat?: No Do you have a cough?: No Do you have any weakness?: No Do you have any diarrhea?: No Are you experiencing any unusual bleeding?: No Do you have any muscle aches/pain?: No Do you have any abdominal pain?: No Are you experiencing loss of taste or smell?: No Other Medical History Have you received the Flu Vaccine for this season: No Have you received the Pneumonia Vaccine: No ROS Obtained: Yes All systems reviewed & no additional complaints except as documented Physical Exam General General appearance: alert and in no apparent distress Head Head exam: atraumatic and normocephalic Eye Eye exam: Present normal appearance, PERRL and EOMI Neck Neck exam: Present normal inspection, full ROM and trachea midline Respiratory Respiratory exam: Present normal lung sounds bilaterally; Absent respiratory distress, wheezes, stridor, accessory muscle use or prolonged expiratory phase Cardiovascular Cardiovascular exam: Present regular rate, normal rhythm and other (Pulses equal symmetric in upper and lower extremities) Abdominal Exam Abdominal exam: Present soft; Absent distention, tenderness, guarding, rebound, rigidity or pulsatile mass Extremities Exam Extremities exam: Absent edema Neurological Exam Neurological exam: Present alert, oriented X3 and other (Patient has left-sided nasolabial fold flattening, but no overt facial droop. Forehead is spared. Upper extremity strength intact and symmetric. Patient does have some lower extremity drift on the left. [id number] left upper extremity with mild dysmetria.) Skin Skin exam: Present warm and dry; Absent diaphoresis or erythema Medical Decision Making Medical Records Medical records reviewed: Yes I reviewed the patient's medical records. Screening: Per USPSTF and CDC recommendations, given the prevalence of disease in our region, it is our hospital?s policy to screen for HIV and viral Hepatitis for all patients aged 18 and over and those with ongoing risk factors. Roger Inquiry Pt receiving controlled substance: No Roger was queried for this patient: No Vital Signs: 01/16/25 10:57 01/16/25 11:00 01/16/25 12:00 Temperature 98.1 F Temperature Source Oral Pulse Rate 58 L 56 L Pulse Rate [Left] 86 Respiratory Rate 16 15 14 Blood Pressure 135/93 H 187/110 H Blood Pressure [Right Arm] 176/99 H Blood Pressure Mean [Right Arm] 124 Blood Pressure Source [Right Arm] Automatic Cuff 02 Sat by Pulse Oximetry 96 96 97 Oxygen Delivery Method Room Air Room Air Room Air 01/16/25 13:00 Temperature Temperature Source Pulse Rate 59 L Pulse Rate [Left] Respiratory Rate 22 Blood Pressure 159/97 H Blood Pressure [Right Arm] Blood Pressure Mean [Right Arm] Blood Pressure Source [Right Arm] 02 Sat by Pulse Oximetry 97 Oxygen Delivery Method Room Air Lab Data Lab Results 01/16/25 10:42: HCV Ab PRIYANK w/Rflx PCR Qn Negative, HIV Ag/Ab Combo Qual Negative 01/16/25 10:43: WBC 9.0, RBC 5.47 H, Hgb 16.4 H, Hct 48.7 H, MCV 89.0, MCH 30.0, MCHC 33.7, RDW 12.8, Plt Count 336, MPV 9.6, Neut % (Auto) 73.9, Lymph % (Auto) 15.0, [place] % (Auto) 7.3, Eos % (Auto) 2.6, Baso % (Auto) 0.9, Neut # (Auto) 6.6, Lymph # (Auto) 1.3, [place] # (Auto) 0.7, Eos # (Auto) 0.2, Baso # (Auto) 0.1, PT 10.3, INR 0.91, APTT 24.8, Sodium 140, Potassium 3.7, Chloride 99, Carbon Dioxide 28, Anion Gap 16.7 H, BUN 14, Creatinine 1.00, Estimated GFR 54 L, Est GFR ( Amer) 65, Glucose 127 H, Calcium 10.0, Magnesium 1.8, Total Bilirubin 1.3, AST 34, ALT 28, Alkaline Phosphatase 93, Troponin I < 0.01, Total Protein 8.9 H, Albumin 4.9, Globulin 4.0 H, Albumin/Globulin Ratio 1.2, TSH 0.49, Thyroxine (T4) 15.5 H 01/16/25 10:46: POC Glucose 113 H 01/16/25 12:34: Urine Color Yellow, Urine Appearance Clear, Urine pH 6.5, Ur Specific [place] <= 1.005, Urine Protein Negative, Urine Glucose (UA) Negative, Urine Ketones Negative, Urine Blood Trace-i, Urine Nitrate Negative, Urine Bilirubin Negative, Urine Urobilinogen 0.2, Ur Leukocyte Esterase Negative 01/16/25 10:43 01/16/25 10:43 Orders (Tests/Meds): ED MEDICATIONS Discontinued Medications Generic Name Dose Route Start Last Admin Trade Name Valdemarq PRN Reason Stop Dose Admin Acetaminophen 1,000 mg 01/16/25 11:53 01/16/25 11:58 Acetaminophen 1,000mg/100ml Vial IV 01/16/25 11:54 1,000 mg ONCE ONE Administration Iopamidol 80 ml 01/16/25 11:17 01/16/25 11:18 Iopamidol-370 (76%);100ml Bottle IV 01/16/25 11:18 80 ml ONCE ONE Administration Iopamidol 80 ml 01/16/25 11:17 01/16/25 11:18 Iopamidol-370 (76%);100ml Bottle IV 01/16/25 11:18 80 ml ONCE ONE Administration Ketorolac Tromethamine 15 mg 01/16/25 11:53 01/16/25 11:58 Ketorolac 30mg/Ml Vial IV 01/16/25 11:54 15 mg ONCE ONE Administration Sodium Chloride 50 ml 01/16/25 11:17 01/16/25 11:18 0.9 % Sodium Chloride 50 Ml Vial IV 01/16/25 11:18 50 ml ONCE ONE Administration Sodium Chloride 10 ml 01/16/25 11:17 01/16/25 11:18 Sodium Chloride 0.9% 10ml Syr (Rad Only) IV 01/16/25 11:18 10 ml ONCE ONE Administration Sodium Chloride 50 ml 01/16/25 11:17 01/16/25 11:18 0.9 % Sodium Chloride 50 Ml Vial IV 01/16/25 11:18 50 ml ONCE ONE Administration Sodium Chloride 10 ml 01/16/25 11:17 01/16/25 11:18 Sodium Chloride 0.9% 10ml Syr (Rad Only) IV 01/16/25 11:18 10 ml ONCE ONE Administration ORDERS Category Date Time Status CT angio chest - dissection Stat Cat Scan 01/16/25 10:[address] angio head Stat Cat Scan 01/16/25 10:[address] angio neck Stat Cat Scan 01/16/25 10:[address] head/brain wo con Stat Cat Scan 01/16/25 10:58 Completed XR chest portable Stat Exams 01/16/25 10:58 Completed Complete Blood Count Auto Diff Stat Lab 01/16/25 10:43 Completed Comprehensive Metabolic Panel Stat Lab 01/16/25 10:43 Completed HIV Combo Stat Lab 01/16/25 10:42 Completed Hepatitis C Ab Qual. W/ RFX Stat Lab 01/16/25 10:42 Completed Magnesium Stat Lab 01/16/25 10:43 Completed POC Glucose,Bedside Routine Lab 01/16/25 10:46 Completed PT INR [Prothrombin Time INR] Stat Lab 01/16/25 10:43 Completed PTT [Activated Partial Thrombo Time] Stat Lab 01/16/25 10:43 Completed T4 (Thyroxine) Stat Lab 01/16/25 10:43 Completed TSH [Thyroid Stimulating Hormone] Stat Lab 01/16/25 10:43 Completed Troponin I Q3H Lab 01/16/25 14:00 Ordered Troponin I Q3H Lab 01/16/25 17:00 Ordered Troponin I Stat Lab 01/16/25 10:43 Completed Urinalysis and Microscopic Stat Lab 01/16/25 12:34 Results Medical Decision Narrative: 74-year-old female with history of medication noncompliance, hypertension, hyperlipidemia, CAD status post stenting, hypothyroidism presenting with left-sided deficits. She states that they started 3 days prior to this. Initially started with feeling as if she could not swallow correctly on the left side of her throat. She states she had to help the food down, but never choked on the food and never went down into her lungs. States that since that time, the left side of her face has felt swollen. 2 days prior to this, she states that she woke up from sleep with a headache that was mild to moderate in intensity and since that time peaked into 10 out of 10 bandlike headache, now mild in intensity and throughout her entire head. No fevers or chills, nausea or vomiting, vision changes, right-sided deficits, balance deficits, chest pain, shortness of breath, syncopal episodes, or any other concerns. History was obtained via conversation with patient. On arrival, patient hemodynamically stable, alert, oriented x4, appropriate, GCS 15, moving all extremities spontaneously, pupils equal and reactive to light. Full physical exam performed and significant for very clinically well-appearing female no acute distress. No overt facial edema. EOMs intact. Patient has left-sided nasolabial fold flattening with normal tongue protrusion. Spares the forehead. Intact and symmetric strength in her upper extremities with mild dysmetria in the left upper extremity. Intact strength in bilateral lower extremities, but she does have some drift in her left lower extremity. No lower extremity edema, pulses equal and symmetric. Differential includes intracranial hemorrhage, embolic versus thrombotic stroke, TIA, stroke mimic, pneumonia, dissection, urinary tract infection, among others. Patient placed on continuous cardiac monitoring and continuous pulse ox with initial blood pressure 176/99, heart rate 86, saturation 96% on room air. Independent interpretation of EKG shows sinus rhythm 65 bpm with NV 120, QRS 93, QTc 435. Leftward axis and no acute ischemic change. Glucose was just over 100 on fingerstick. Patient was given Toradol and acetaminophen for symptomatic management and correction of underlying abnormalities after CT head independently interpreted and no evidence of intracranial hemorrhage. Workup independently interpreted and significant for nonactionable CBC or chemistry. Nonactionable coags. Troponin negative, thyroid studies without concern for underlying abnormality. T4 little high, but on replacement. TSH normal. Urinalysis normal. On independent interpretation of imaging, patient has no intracranial hemorrhage, no obvious vascular abnormality of the head or neck. See radiology read for full review of final results. Reevaluation, patient states that she is ready to go home, has no acute complaints. Able to tolerate p.o. intake without issue. 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 Inpatient MRI was offered, but patient would prefer to go home and have outpatient MRI performed with primary care provider. Because CVA would at this point be 72 hours old, no abnormalities found on CT scan, I do not feel this is customer response representative of stroke, likely, and no further medication started. Because patient at baseline without signs or symptoms of clinical decompensation, deemed appropriate for discharge. Results were relayed to patient who voiced understanding and were agreeable to outpatient management and follow up. I discussed my clinical impression with patient and answered all questions. At this time, the evidence for any other entities in the differential is insufficient to warrant any further testing or ED observation. This was explained as well. Advisory was given that persistent or worsening symptoms require further evaluation. I confirmed the understanding of this discussion. Close outpatient follow-up was recommended Scanning Tech disclaimer Much of this encounter note is an electronic agriscience instructor spoken language to printed text. Electronic agriscience instructor of the spoken language may permit errors. Although I have reviewed the note, some errors may still exist. Critical Care Critical Care Time Critical Care Time: No
[2025-01-16] MEDS: KETOROLAC 30MG/ML VIAL 15 MG IV (11:58)
[2025-01-16] MEDS: ACETAMINOPHEN 1,000MG/100ML VIAL 1000 MG IV (11:58)
[2025-01-16 12:00] VITALS: BP 187/110; PULSE 56; RESP 14; O2SAT 97
--- NOTE | 2025-01-16 12:36 | PC.NURSE ---
KIAH GUILLERMO SENT UA TO LAB
[2025-01-16 12:38] LABS: Microscopic, Urine URINE MICROSCOPIC (MICROSCOPIC)
--- NOTE | 2025-01-16 12:40 | PC.NURSE ---
called radiology to check on the status of ct reads remaining. There are prelim reads that they are printing to er. Will give to Dr Grant
[2025-01-16 12:57] LABS: HIV Combo NEGATIVE (Negative)
[2025-01-16 13:00] VITALS: BP 159/97; PULSE 59; RESP 22; O2SAT 97
[2025-01-16 13:01] LABS: Appearance,Urine CLEAR (Clear); Bilirubin,Urine Negative (Negative); Blood, Urine TRACE-I (Negative); Color,Urine YELLOW (Yellow); Glucose,Urine (UA) Negative (Negative); Ketones,Urine Negative (Negative); Leukocyte Esterase,Urine Negative (Negative); Nitrate,Urine Negative (Negative); PH,Urine 6.5 (5.0-8.5); Protein,Urine Negative (Negative); Specific Gravity, Urine <= 1.005 (1.005-1.030); Urobilinogen,Urine 0.2 EU/dl (0.2)
[2025-01-16 13:05] LABS: Hepatitis C Ab Qual. W/ RFX NEGATIVE (Negative)
[2025-01-16 13:23] VITALS: BP 159/97; PULSE 53; RESP 15; TEMP 36.7; O2SAT 95
[2025-01-16 13:53] LABS: Bacteria,Urine Trace /lpf; RBC,Urine Occasional #/hpf (0-3); Squamous Epithelial Cell,Urine Occasional #/hpf (0-5); WBC,Urine Occasional #/hpf (0-3)
== END 2025-01-16 13:29 | disposition home or self-care (01) ==
PROVIDERS: Emergency Provider Emergency Medicine; PCP Nurse Practitioner Family
DX: R29.810 Facial weakness (principal); R13.10 Dysphagia, unspecified; R51.9 Headache, unspecified; Z11.59 Encounter for screening for other viral diseases; Z11.4 Encounter for screening for human immunodeficiency virus [HIV]
CPT/HCPCS: 70450; 70496; 70498; 71045; 71275; 80053; 81001; 82962; 83735; 84436; 84443; 84484; 85025; 85610; 85730; 86803; 87389; 93005; 96374; 96375; 99285; J0131; J1885; Q9967

== ENCOUNTER 2025-02-19 12:43 | Outpatient (CLI) | payer MEDICARE, SELFPAY ==
--- NOTE | 2025-02-19 12:49 | MR_ITS ---
FINAL REPORT TECHNIQUE: Multiplanar MR without contrast CLINICAL HISTORY: BULBAR WEAKNESS/MUSCLE WEAKNESS. headache, unsteady gait, had pain on left side of face, forgetfulness FINDINGS: Diffusion sequences show no signal abnormality to indicate acute infarct. Extensive white matter signal changes are compatible with chronic microvascular disease. Mild generalized atrophy is present. No mass, hemorrhage or edema is seen. Ventricles are normal. Major vascular flow voids are intact. IMPRESSION: 1. No mass, acute infarct or hydrocephalus 2. Atrophy and chronic ischemic white matter changes Reviewed, Interpreted and Dictated by Morena Flaherty MD Transcribed by Amira Davalos Authenticated and [facility]
== END 2025-02-19 23:59 | disposition home or self-care (01) ==
LOC: RAD 12:45
PROVIDERS: PCP Nurse Practitioner Family; Visit Provider Nurse Practitioner Family
DX: I67.82 Cerebral ischemia (principal); G31.9 Degenerative disease of nervous system, unspecified; M62.81 Muscle weakness (generalized)
CPT/HCPCS: 70551

== ENCOUNTER 2025-02-26 10:52 | Outpatient (CLI) | payer MEDICARE, SELFPAY ==
--- NOTE | 2025-02-26 10:54 | FL_ITS ---
FINAL REPORT CLINICAL HISTORY: DIFFICULTY SWALLOWING SOLIDS 4.05 time 227.04 dap FINDINGS: FLUOROSCOPY LESS THAN 1 HOUR HISTORY: Fluoroscopy guidance. Fluoroscopic guidance was provided for barium swallow. A total of 4.05 minutes of fluoroscopy time were used. Total DAP: 227.04 mGy IMPRESSION: As above. Reviewed, Interpreted and Dictated by Rahul Luciano MD Transcribed by Esme Frederick Authenticated and [facility]
--- NOTE | 2025-02-26 14:00 | HMH.SLMBS2 ---
Speech & Language Evaluation Speech/Lang Modified Barium Swallow Start: 02/26/25 13:07 Freq: once Status: Complete Protocol: Document 02/26/25 13:07 VERITO (Rec: 02/26/25 14:00 [id number]) [employer] Evaluation Information [employer] Evaluation Information Date of Evaluation: 02/26/25 Time of Evaluation: 11:00 Evaluation Type Initial Certification Reason for Referral difficulty swallowing solids per MD order Does Patient Qualify for Service No Qualify/Failure Comment Based on clinical observation, with implementation of compensatory strategies and following diet recommendations , pt's mastication and manipulation of bolus and swallowing are within functional limits. Pt would benefit from an ENT and GI referral for further assessment given c/o globus sensation. She would also benefit from a skilled speech therapy evaluation to further assess oral motor and cognitive-linguistic deficits, as well as a skilled physical therapy evaluation to assess her gait and balance difficulties. MBS Recommendations Diet Dietary Recommendations Regular,Thin Liquids SL Swallow Guidelines Alt bite w/sip thru meal, Standard Aspiration Prec.,Eat at slow rate,Reflux precautions Swallowing Crush Meds Small pills w/applesauce,Crush lge pills w/applesa Treatment/Strategies Strategy/Precaution Recommended Sitting Upright (90 deg),Chin Tuck,Double Swallow,No Straw, Small Bites and Sips,Alternate Liquids/Solids Referral/Other Recommended Referrals GI Consult,ENT Consult Other Recommendations Outpatient PT/ST referrals [employer] Patient History Section [employer] Patient History Primary Medical History 74-year-old female with history of medication noncompliance, hypertension, hyperlipidemia, CAD status post stenting, and hypothyroidism. Pt presented to [facility] ER in December 2024 with c /o left sided deficits and the worst headache of her life in which she was later transferred to [facility] for further evaluation. Pt reports since episode in December , she has had increased difficulty with swallowing, reports of being unable to complete adequate tongue sweep to clear residuals in oral cavity, c/o globus sensation, and getting choked up at night when she lays down--reporting thick phlegm-like drainage that causes her to choke. Pt also presented with L sided facial weakness at this date. [employer] completed oral [facility] exam and pt exhibited tongue deviation to the side, weak labial seal, decreased DDK rates, inability to complete increased complexity oral motor tasks, as well as overall word finding and memory difficulties. Pt reports difficulty with all pills and straw. Does Patient have Reflux or GERD? No Does Patient Experience Coughing or Yes Choking Episodes? Coughing or Choking Comment At night when laying down and when using a straw. Does Patient Utilize Compensatory Yes Strategies During Meals? Compensatory Strategies Comment She reports increased mastication time and multiple swallows. Has Patient Experienced Significant No Weight Loss? Does Pt have Hx of Recurrent Pneumonias No or Respiratory Infections? Has Patient Noticed Change in Vocal Yes Quality? Vocal Quality Comment Pt reports she has become more soft-spoken since event in December Mod Barium Swallow Study Patient Orientation Patient Orientation Person,Place,Time,Situation Oral Expression Ability No Impairment Ability to Follow Directions Excellent Is Patient able to Perform Volitional Yes Throat Clear? Is Patient able to Perform Volitional Yes Cough? Is Patient able to Manage Secretions Yes Independently? Mod Barium Swallow Set Up Radiologist Luan Barbosa Patient Presentation: Awake,Alert,Appropriate, Follows Commands Bolus Consistencies Trialed: Thin Liquids,Pudding,Puree, Mechanical Soft,Regular,Pill ( Barium Tablet) MBSS Observations Consistency & Strategy Trial Regular Penetration/Aspiration Scale 2 PAS Amount Trace Pharyngeal Residual 10-49% Regular Half Bolus Penetration/Aspiration Scale 1 PAS Amount Trace Pharyngeal Residual 0-9% Mechanical Soft Penetration/Aspiration Scale 2 PAS Amount Trace Pharyngeal Residual 10-49% Mechanical Soft Half Bolus Penetration/Aspiration Scale 1 PAS Amount Trace Pharyngeal Residual 0-9% Puree Full Spoon Penetration/Aspiration Scale 1 PAS Amount Neither Pharyngeal Residual 0-9% Puree Half Spoon Penetration/Aspiration Scale 1 PAS Amount Neither Pharyngeal Residual 0-9% Pudding Full Spoon Penetration/Aspiration Scale 1 PAS Amount Neither Pharyngeal Residual 0-9% Pudding Half Spoon Penetration/Aspiration Scale 1 PAS Amount Neither Pharyngeal Residual 0-9% Thin Subsequent Sips from Straw Penetration/Aspiration Scale 2 PAS Amount Trace Pharyngeal Residual 10-49% Thin Straw Sip Penetration/Aspiration Scale 1 PAS Amount Trace Pharyngeal Residual 0-9% Thin Subsequent Sips from Cup Penetration/Aspiration Scale 1 PAS Amount Neither Pharyngeal Residual 0-9% Thin Open Cup Sip Penetration/Aspiration Scale 1 PAS Amount Neither Pharyngeal Residual 0-9% Mod Barium Swallow Impressions Oral Phase Summary & Impressions Oral Phase: Impression Mild Impairment Oral Phase: Labial Closure Minimal Impairment Oral Phase: Bolus Formation Pooling L/R Mild Impairment Oral Phase: Bolus Formation Under Tongue Minimal Impairment Oral Phase: Bolus Formation Scattered Minimal Impairment Loss Oral Phase: Mastication Rotary Chew Minimal Impairment Oral Phase: Mastication Munching Minimal Impairment Oral Phase: Mastication Lateralization Mild Impairment Oral Phase: Lingual Movement Moderate Impairment Oral Phase: Residue Clearing Mild Impairment Oral Phase: Other Observations Following pt report of difficulty with tongue sweep and requiring a self-finger sweep of solid bolus presentations. [employer] completed a limited oral [facility] exam to further assess oral motor skills. Pt demonstrated weak labial strength and seal, tongue fasciculations, decreased stamina when assessing tongue lateralization, decreased tongue strength against resistance, and reduced DDK rates. Pharyngeal Phase Summary & Impressions Pharyngeal Phase: Impression Mild Impairment Pharyngeal Phase: A/P Lingual Propulsion Mild Impairment Spills Pharyngeal Phase: Swallow Response Delay Mild Impairment Pharyngeal Phase: Base of Tongue Mild Impairment Pharyngeal Phase: Epiglottic Coverage Mild Impairment Pharyngeal Phase: Laryngeal Elevation Mild Impairment Pharyngeal Phase: Vallecular Retention Mild Impairment Clearing Pharyngeal Phase: Pharyngeal Wall Minimal Impairment Residue Clearing Pharyngeal Phase: Piriform Sinus Minimal Impairment Retention Pharyngeal Phase: Summary Throughout the assessment, pt benefitted from chin tuck and/ or tilt to the left side when swallowing. Pt exhibited reduced hyolaryngeal excursion and BOT retraction, and decreased epiglottic coverage across all consistencies. With solids, residuals were also found at the pyriform sinus and she required a puree wash to clear residuals as well as a double swallow. Pt required barium tablet in applesauce to be able to clear. While no aspiration was noted, pt did experience penetration when attempting to swallow barium tablet with thin liquids that was cleared with a self- produced cough and throat clear. Aspiration Aspiration? No Silent Aspiration? No [employer] MBSS Goals [employer]BS [employer] Goals Patient will utilize compensatory Double Swallow,Chin Tuck,No strategies with PO intake in order to Straws,Alternate Bites & Sips, meet nutrition and hydration needs for Sitting Upright,Small Bites & daily meals without overt signs/symptoms Sips,Effortful Swallow of aspiration. The patient will tolerate the least Regular,Thin Liquids restrictive diet with a safe/efficient swallow to maintain adequate nutrition and hydration. Education Instructions provided Discussed results of instrumental assessment (MBSS) and reviewed compensatory strategies/aspiration risks & precautions/diet recommendations, as well as referral to ENT, GI, PT, and outpatient speech with pt who expressed understanding. Patient/Caregiver Able to Recall Able to recall/restate Information Reinforcement needed No PHYSICIAN CERTIFICATION: I certify the specified therapy services for Tere Dasha Fryman are required, authorized, and reviewed every 30 days.
== END 2025-02-26 23:59 | disposition home or self-care (01) ==
LOC: RAD 10:53
PROVIDERS: PCP Nurse Practitioner Family; Visit Provider Nurse Practitioner Family
DX: R13.10 Dysphagia, unspecified (principal)
CPT/HCPCS: 74230; 92611